=== PATIENT | male | born 1985 | race Caucasian/White ===

== ENCOUNTER 2021-09-17 11:59 | Emergency (ER) | payer OTHER ==
[2021-09-17 12:12] VITALS: TEMP 97.7; BMI 23.7
[2021-09-17] MEDS ORDERED: SODIUM CHLORIDE 1,000 ML IV STA (13:06)
[2021-09-17 13:50] LABS: BASO % 0.5 % (0-2.0); EOS % 0.5 % (0-4.5); HEMATOCRIT 41.3 % (35.4-49); HEMOGLOBIN 14.2 GM/dL (11.7-16.9); LYMPH % 14.2 % (8-40); MCH 30.6 pg (25.7-33.7); MCHC 34.4 g/dl (32.0-35.9); MEAN PLT VOLUME 9.1 fl (7.5-11.1); MONO % 5.6 % (3.8-10.2); NEUT % 79.2 % (42.8-82.8); PLATELET COUNT 186 10^3/uL (134-434); RBC 4.64 M/mm3 (4.00-5.60); RDW 12.5 % (11.9-15.9); WHITE BLOOD COUNT 8.1 K/mm3 (4.0-10.0)
[2021-09-17 14:16] LABS: CALCIUM 8.6 mg/dL (8.5-10.1)
[2021-09-17 14:17] LABS: ALBUMIN 3.8 g/dl (3.4-5.0); BLOOD UREA NITROGEN 18.1 mg/dL (7-18); MAGNESIUM 2.2 mg/dL (1.8-2.4)
[2021-09-17 14:20] LABS: CREATININE 0.8 mg/dL (0.55-1.3)
[2021-09-17 14:22] LABS: BILIRUBIN,TOTAL 0.6 mg/dL (0.2-1); TOT PROT 6.6 g/dl (6.4-8.2)
[2021-09-17 14:48] VITALS: BP 105/68; PULSE 50; RESP 14
== END 2021-09-17 14:49 | disposition home or self-care (01) ==
LOC: JER 11:59
PROC: 3E0337Z Introduction of Electrolytic and Water Balance Substance into Peripheral Vein, Percutaneous Approach (ICD-10-PCS; principal; 2021-09-17)
DX: R55 Syncope and collapse (principal)
CPT/HCPCS: 36415; 71046-TC-FY; 80053; 83735; 84443; 85025; 93005; 93010; 99285-25